=== PATIENT | female | born 1995 ===

== ENCOUNTER 2018-09-03 11:09 | Emergency (ER) | payer MEDICAID, OTHER ==
[2018-09-03 11:09] VITALS: BMI 32.9
[2018-09-03 11:32] VITALS: O2SAT 99
[2018-09-03 11:50] LABS: HEMOGLOBIN 14.7 g/dL (11.0-16.0); MEAN CORPUSCULAR HEMOGLOBIN 31.5 pg (27.0-31.0); MEAN CORPUSCULAR HGB CONC 34.7 g/dL (33.0-37.0); MEAN PLATELET VOLUME 8.2 fL (7.2-11.7); RBC 4.67 Mil/uL (3.80-5.20); RED CELL DISTRIBUTION WIDTH 13.8 % (11.5-14.5); WHITE BLOOD COUNT 14.8 K/uL (4.8-10.8)
[2018-09-03] MEDS ORDERED: Sodium Chloride 0.9% 1,000 ML IV ONE (11:52)
[2018-09-03] MEDS ORDERED: Alum-Mag Hydrox-Simethicone Susp (30 mL) PO ONE (11:54)
[2018-09-03] MEDS ORDERED: Aluminum Hydroxide/Magnesium Hydroxide Susp (30 mL) ONE (11:55)
--- NOTE | 2018-09-03 11:56 | C.PDOC ---
History Of Present Illness 23 y/o female pt presents to the ER c/o epigastric abdominal pain that started last night. Pt reports she was mixing alcohol and drinking them last night. Associated sx includes vomiting. Pt denies headache, nausea and dizziness. Time Seen by Provider: 09/03/18 11:45 Chief Complaint (Nursing): Abdominal Pain History Per: Patient History/Exam Limitations: no limitations Onset/Duration Of Symptoms: Hrs Current Symptoms Are (Timing): Still Present Location Of Pain/Discomfort: Epigastric Past Medical History Reviewed: Historical Data, Nursing Documentation, Vital Signs Vital Signs: Last Vital Signs Temp 98.1 F 09/03/18 11:30 Pulse 95 H 09/03/18 11:30 Resp 18 09/03/18 11:30 BP 144/89 09/03/18 11:30 Pulse Ox 99 09/03/18 11:30 Family History: States: Unknown Family Hx, Diabetes, Hypertension - Social History Hx Alcohol Use: Yes Hx Substance Use: No - Immunization History Hx Tetanus Toxoid Vaccination: No Hx Influenza Vaccination: No Hx Pneumococcal Vaccination: No Review Of Systems Except As Marked, All Systems Reviewed And Found Negative. Gastrointestinal: Positive for: Vomiting, Abdominal Pain (epigastric). Negative for: Nausea Neurological: Negative for: Headache, Dizziness Physical Exam - Physical Exam Appears: Non-toxic, No Acute Distress Skin: Warm, Dry Head: Normacephalic Eye(s): bilateral: Normal Inspection, EOMI Oral Mucosa: Moist Throat: Normal Chest: Symmetrical Cardiovascular: Rhythm Regular Respiratory: Normal Breath Sounds Gastrointestinal/Abdominal: Soft, Tenderness (mild epigastric ), No Distention, No Guarding, No Rebound Neurological/Psych: Oriented x3, Normal Speech ED Course And Treatment - Laboratory Results Result Diagrams: 09/03/18 11:42 09/03/18 11:42 O2 Sat by Pulse Oximetry: 99 (RA) Pulse Ox Interpretation: Normal Medical Decision Making Medical Decision Making: Impression: epigastric abdominal pain Plans: -- chem labs -- blood work -- Maalox -- Pepcid -- Zofran -- IV fluids -- UA Reassess: Patient is resting comfortably, abdomen remains soft, and patient is tolerating PO. Patient feels comfortable going home. Patient will be discharged home. Disposition - Disposition Referrals: [facility] [place]] [facility] [Outside] [facility] [Outside] Disposition: HOME/ ROUTINE Disposition Time: 14:09 Condition: GOOD Additional Instructions: Please take pepcid as directed and follow up with your pcp. Prescriptions: Famotidine [Pepcid] 40 mg PO DAILY #30 ml Instructions: Gastritis, Alcohol Use - When Is Drinking a Problem? Forms: [employer] (Macanese) - Clinical Impression Clinical Impression: Gastritis, Alcohol abuse - Scribe Statement The provider has reviewed the documentation as recorded by the Ranjanaiblee Merida Do Provider Attestation: All medical record entries made by the Ranjanaibe were at my direction and personally dictated by me. I have reviewed the chart and agree that the record accurately reflects my personal performance of the history, physical exam, medical decision making, and the department course for this patient. I have also personally directed, reviewed, and agree with the discharge instructions and disposition.
[2018-09-03 11:57] LABS: SQUAMOUS EPITHIAL 1 /hpf (0-5); URINE BILIRUBIN NEGATIVE (NEGATIVE); URINE BLOOD 2+ (NEGATIVE); URINE CLARITY Clear (Clear); URINE COLOR Yellow (YELLOW); URINE GLUCOSE (UA) NORMAL (Normal); URINE LEUKOCYTE ESTERASE NEG Leu/uL (Negative); URINE PROTEIN 1+ mg/dL (NEGATIVE); URINE UROBILINOGEN NORMAL mg/dL (0.2-1.0)
[2018-09-03 12:07] LABS: ALB/GLOB RATIO 1.6 (1.0-2.1); ALBUMIN 4.9 g/dL (3.5-5.0); ALT/SGPT 28 U/L (9-52); AST/SGOT 30 U/L (14-36); BLOOD UREA NITROGEN 14 mg/dL (7-17); CALCIUM 9.4 mg/dl (8.6-10.4); GFR NON-AFRICAN AMERICAN > 60; LIPASE 55 U/L (23-300)
[2018-09-03 14:11] VITALS: BP 130/75; PULSE 85; RESP 16; TEMP 98
== END 2018-09-03 14:09 | disposition home or self-care (01) ==
LOC: C.ER 11:09
DX: K29.70 Gastritis, unspecified, without bleeding (principal); F10.10 Alcohol abuse, uncomplicated
CPT/HCPCS: 36415; 80053; 81001; 83690; 85027; 96374; 96375; 99284; J2405; J7030